=== PATIENT | male | born 1995 | race Caucasian/White ===

== ENCOUNTER 2021-03-15 22:26 | Emergency (ER) | payer BC, SELFPAY ==
--- NOTE | 2021-03-15 22:48 | ED.PSYCH ---
HPI - Psych General Chief Complaint: Psychiatric Symptoms Stated Complaint: psych eval Time Seen by Provider: 03/15/21 22:48 Source: patient Mode of arrival: ambulatory Limitations: no limitations History of Present Illness HPI Narrative: 25-year-old man comes to the emergency department on the recommendation of the police who encountered him earlier today and then again this evening. Patient states that he has been intimidated by some people on twitter that he thinks might be the [employer]. Earlier today there was a malfunction in carbon monoxide detector in his home. Testing later revealed no CO in the home. Patient states that he lost his job 3 weeks ago after he was offered advancement. He states he smokes marijuana and cigarettes but does no other drugs or alcohol. He denies suicidal ideation and homicidal ideation. complaint: other Onset (ago): day(s) Duration: constant History of same: No Relieving factors: none Exacerbating factors: none Context: not taking psychiatric medications and significant life stressor Associated psychiatric symptoms: delusions Associated symptoms: insomnia (Sleeps only 4-5 hours per night recently) Treatments prior to arrival: none Related Data Home Medications Medication Instructions Recorded Confirmed No Home Medications 03/15/21 03/15/21 Review of Systems Review of Systems: All systems reviewed & are unremarkable except as noted in HPI and below Constitutional: Constitutional: Denies chills and Denies fever(s) Eyes: Eyes: Denies change in vision and Denies photophobia ENT: Denies nasal congestion and Denies sore throat Cardiovascular: Cardiovascular: Denies chest pain and Denies radiating jaw, neck or arm pain Respiratory: Respiratory: Denies cough and Denies dyspnea Gastrointestinal: Gastrointestinal: Denies abdominal pain, Denies diarrhea, Denies nausea and Denies vomiting Genitourinary: Genitourinary: Denies oliguria, Denies dysuria, Denies penile discharge, Denies testicular pain, Denies urinary frequency and Denies urinary incontinence Comments: Sometimes has difficulty urinating. States he had a recent sexual encounter. Musculoskeletal: Musculoskeletal: Reports back pain, Denies arthralgias and Denies joint swelling Integumentary/Breasts: Skin/Breast: Denies pruritus, Denies erythema and Denies rash Neurologic: Denies vertigo, Denies dizziness, Denies syncope, Denies headache(s) and Denies weakness Hematologic/Lymphatic: Hematologic/Lymphatic: Denies easy bleeding and Denies easy bruising Allergic/Immunologic: Allergic/Immunologic: Denies throat swelling and Denies tongue swelling [facility] Surgical History Surgical History (Updated 03/15/21 @ 23:33 by Rodrigue Walker MD) Hx of [facility] Social History Social History (Updated 03/15/21 @ 23:34 by Rodrigue Walker MD) Smoking status: Current every day smoker Tobacco type: cigarettes Alcohol intake: never Substance use type: marijuana Living arrangements: with friend(s) Occupation/Education: unemployed Exam Const: General: healthy appearing, no acute distress and alert Orientation/consciousness: patient oriented x3 Limitations: no limitations HENMT: Head: normal to inspection Face and sinus: normal facial exam Mouth: Yes moist mucous membranes abnormal Teeth and gingiva: abnormal tooth and associated gingiva Eyes: Conjunctivae: conjunctivae normal Pupils: Equal, round and reactive pupils present EOM: EOMs intact bilaterally Resp: Effort & Inspection: normal respiratory effort and not labored Auscultation: clear to auscultation bilaterally, no rales, no rhonchi and no wheezes Cardio: Rate: regular rate Rhythm: regular rhythm Heart sounds: no murmurs Skin: General skin exam: normal color, no jaundice and no pallor Rashes: no rashes Neuro: General: patient oriented x3, moves all extremities, no focal motor deficits and CN's II-XI intact bilaterally Speech: normal speech Gait exam (Neur
[2021-03-15 22:49] VITALS: BP 166/90; PULSE 102; RESP 18; TEMP 36.9; O2SAT 100
[2021-03-15 23:32] LABS: Add Urine Microscopic? NO; Appearance Urine Clear (Clear); Bilirubin Urine Negative (Negative); Blood Urine Negative (Negative); Color Urine Light Yellow (Yellow); Glucose Urine UA Negative (Negative); Ketones Urine Negative (Negative); Leukocyte Esterase Ur Negative (Negative); Nitrate Urine Negative (Negative); Protein Urine Negative (Negative); Specific Grav Ur <= 1.005 (1.010-1.020); Urobilinogen Urine 0.2 mg/dL (0.2-1.0)
[2021-03-15 23:58] VITALS: BP 154/76; PULSE 88; RESP 18; O2SAT 100
== END 2021-03-16 00:05 | disposition home or self-care (01) ==
PROVIDERS: Emergency Provider Emergency Medicine
DX: R39.11 Hesitancy of micturition (principal)
CPT/HCPCS: 81003; 87491; 87591; 99283

== ENCOUNTER 2021-05-19 07:07 | Emergency (ER) | payer BC, SELFPAY ==
[2021-05-19 07:34] VITALS: BP 125/66; PULSE 83; RESP 20; TEMP 36.6; O2SAT 97
--- NOTE | 2021-05-19 07:34 | ED.EXTPRO ---
HPI - Extremity Problem General Chief complaint: Unspecified Stated complaint: HANDS AND ARM FEELS NUMB Time Seen by Provider: 05/19/21 07:35 Source: patient Mode of arrival: ambulatory Limitations: no limitations History of Present Illness HPI Narrative: this is a 25-year-old male that presents with bilateral hand numbness and tingling usually wakes up with the numbness and tingling in his hands gets better throughout the day but then afterwards does recur over the last couple of days has been more constant although still intermittent a strong bilateral radial pulses with no neck pain no shoulder pain no fever chills. Patient also has a concern of lesions on his penis, with no drainage no tenderness. MD Complaint: other (Medicine tingling bilateral hands) Onset (ago): week(s) Pain Consistency: intermittent Location: left and right Radiation: proximal Related Data Home Medications Medication Instructions Recorded Confirmed chlorpromazine 25 mg PO TID 05/19/21 05/19/21 trazodone 50 mg PO HS 05/19/21 05/19/21 Allergies Allergy/AdvReac Type Severity Reaction Status Date / Time No Known Allergies Allergy Verified 05/19/21 07:34 Review of Systems Review of Systems: All systems reviewed & are unremarkable except as noted in HPI and below PMFSH Past Medical History Medical History Patient denies medical problems Surgical History Surgical History Hx of LASIK Social History Social History Smoking status: Current every day smoker Tobacco type: cigarettes Alcohol intake: never Substance use type: marijuana Exam Const: General: no acute distress and alert Orientation/consciousness: patient oriented x3 HENMT: Head: normal to inspection Eyes: Conjunctivae: conjunctivae normal Pupils: Equal, round and reactive pupils present Neck: Neck: normal visual inspection, no lymphadenopathy and no meningeal signs Chest: Chest palpation & inspection: normal inspection of the chest Resp: Effort & Inspection: normal respiratory effort Auscultation: clear to auscultation bilaterally Cardio: Rate: regular rate Rhythm: regular rhythm GI: GI Palp: Yes Soft to palpation Percussion: Yes normal to percussion : Other: normal appearing glans penis Back/Spine/Pelvis: Back: no CVA tenderness Skin: General skin exam: normal color Rashes: no rashes Neuro: General: patient oriented x3 and moves all extremities Extrem: Other: positive tineal and Phalen sign bilateral Psych: Mental Status: mental status grossly normal Affect: normal affect Attitude: cooperative Course Course Emergency Course: patient has bilateral numbness and tingling in his hands and fingers and reproduce with provocative movements advised patient to use wrist splints bilaterally during work and especially at night to use ibuprofen 600mg twice daily, after examining the glans penis there is no significant lesions. Critical Care Time Critical Care Time Critical Care Time: No Discharge Plan Discharge Clinical Impression: Carpal tunnel syndrome Qualifiers: Laterality: bilateral Qualified Code(s): G56.03 - Carpal tunnel syndrome, bilateral upper limbs Patient Disposition: Home, Self-Care Condition: Stable Instructions: Antibiotic Form, Paresthesia (ED) Additional Instructions: advised bilateral wrist splints, ibuprofen 600mg twice daily, and follow-up with primary care physician within 1 week for further evaluation and treatment. Prescriptions: No Action trazodone 50 mg tablet 50 mg PO HS RF: 0 chlorpromazine 25 mg tablet 25 mg PO TID RF: 0 Follow-up/Referrals: UNKNOWN,DOCTOR [Primary Care Provider] - Time of Disposition: 07:40
[2021-05-19 07:56] VITALS: PULSE 80; RESP 20; O2SAT 98
== END 2021-05-19 07:58 | disposition home or self-care (01) ==
PROVIDERS: Emergency Provider Emergency Medicine
DX: G56.03 Carpal tunnel syndrome, bilateral upper limbs (principal)
CPT/HCPCS: 99281